=== PATIENT | female | born 1960 | race Caucasian/White ===

== ENCOUNTER → 2025-01-15 06:37 | Outpatient (REF) | payer OTHER, SELFPAY | LOC: HWWDC 06:37 | PROVIDERS: ATTENDING PHYSICIAN Nurse Practitioner Family; OTHER PHYSICIAN Obstetrics & Gynecology; REFERRING PHYSICIAN Nurse Practitioner Women's Health | DX: Z12.31 Encounter for screening mammogram for malignant neoplasm of breast (principal) | CPT/HCPCS: 77063; 77067 ==